=== PATIENT | male | born 1995 | race African-American/Black ===

== ENCOUNTER 2017-07-21 09:43 | Emergency (ER) | payer OTHER ==
[~2017-07-21] VITALS: Ht 188 cm; Wt 158.8 kg
[2017-07-21 12:18] VITALS: BP 153/71
== END 2017-07-21 12:19 | disposition home or self-care (01) ==
LOC: M.ERS 09:43
DX: N50.812 Left testicular pain (principal)

== ENCOUNTER 2019-11-17 11:05 | Emergency (ER) | payer OTHER ==
[~2019-11-17] VITALS: Ht 188 cm; Wt 149.7 kg
[2019-11-17] MEDS ORDERED: CARVEDILOL12.5 MG PO (11:24)
[2019-11-17] MEDS ORDERED: POTASSIUM20 PO (11:25)
[2019-11-17] MEDS ORDERED: LANOXIN62.5 MCG PO (11:25)
[2019-11-17] MEDS ORDERED: FUROSEMIDE 20 M20 MG PO (11:25)
[2019-11-17 12:10] LABS: ABSOLUTE BASOPHILS 0.1 thou/uL (0.0-0.2); ABSOLUTE EOSINOPHILS 0.1 thou/uL (0.0-0.7); ABSOLUTE LYMPHOCYTES 2.2 thou/uL (0.8-5.3); ABSOLUTE NEUTROPHILS 6.9 thou/uL (1.6-8.1); BASOPHILS 0.9 %; EOSINOPHILS 0.7 %; HEMATOCRIT 41.6 % (42.0-52.0); HEMOGLOBIN 14.2 gm/dL (14.0-18.0); LYMPHOCYTES 21.2 %; MCH 32.7 pg (26.0-34.0); MCV 96.1 fL (80.0-100.0); MONOCYTES 9.3 %; MPV 8.9 fl. (7.2-11.1); NUCLEATED RBCS 0 /100WBC; PLATELET COUNT* 157 thou/uL (150-400); POLYS 67.9 %; RBC 4.33 mil/uL (4.50-6.00); RDW-CV 13.5 % (10.5-14.5); WBC 10.2 thou/uL (4.0-11.0)
[2019-11-17 12:19] LABS: CALCIUM 8.6 mg/dL (8.5-10.1); CREATININE 1.8 mg/dL (0.6-1.3)
[2019-11-17 12:20] LABS: APTT 22.4 Seconds (25.0-31.3); INR 1.3
[2019-11-17 12:32] LABS: ALBUMIN 3.6 g/dL (3.4-5.0); CK-MB MASS 2.4 ng/mL (<0.5-3.6); MAGNESIUM 1.7 mg/dL (1.8-2.4); TOTAL PROTEIN 7.1 g/dL (6.4-8.2)
[2019-11-17 13:08] VITALS: BP 112/61
--- NOTE | 2019-11-17 15:05 | EKG ---
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
== END 2019-11-17 13:09 | disposition home or self-care (01) ==
LOC: M.ERS 11:05
PROVIDERS: Family Medicine
DX: R06.00 Dyspnea, unspecified (principal); R07.89 Other chest pain; I50.9 Heart failure, unspecified; Z79.899 Other long term (current) drug therapy

== ENCOUNTER 2019-11-24 13:26 | Inpatient (IN) | payer OTHER ==
[~2019-11-24] VITALS: Ht 188 cm; Wt 163.7 kg
[~2019-11-24 13:26] MED LIST: CARVEDILOL12.5 MG PO; FUROSEMIDE 20 M20 MG PO; LANOXIN62.5 MCG PO; POTASSIUM20 PO
[2019-11-24 13:31] VITALS: BP 113/77
[2019-11-24 13:59] LABS: ABSOLUTE BASOPHILS 0.1 thou/uL (0.0-0.2); ABSOLUTE EOSINOPHILS 0.1 thou/uL (0.0-0.7); ABSOLUTE LYMPHOCYTES 2.1 thou/uL (0.8-5.3); ABSOLUTE MONOCYTES 1.1 thou/uL (0.0-1.2); ABSOLUTE NEUTROPHILS 7.7 thou/uL (1.6-8.1); HEMOGLOBIN 14.2 gm/dL (14.0-18.0); LYMPHOCYTES 18.8 %; MCH 32.5 pg (26.0-34.0); MCHC 33.8 g/dL (28.0-37.0); MCV 96.1 fL (80.0-100.0); MONOCYTES 9.5 %; MPV 9.5 fl. (7.2-11.1); NUCLEATED RBCS 0 /100WBC; PLATELET COUNT* 171 thou/uL (150-400); POLYS 69.7 %; RBC 4.38 mil/uL (4.50-6.00)
[2019-11-24 14:16] LABS: CALCIUM 8.3 mg/dL (8.5-10.1); CREATININE 1.9 mg/dL (0.6-1.3); POTASSIUM 4.1 mmol/L (3.5-5.1)
[2019-11-24 14:22] LABS: ALBUMIN 3.3 g/dL (3.4-5.0); TOTAL BILIRUBIN 1.5 mg/dL (<0.1-1.0); TOTAL PROTEIN 6.5 g/dL (6.4-8.2)
--- NOTE | 2019-11-24 15:02 | EKG ---
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1995 Requested By: So Thompson Order Number: [id number] MD: Christopher Ambrosio Measurements Intervals [place] Rate: 81 P: 79 [place]: 160 QRS: 57 QRSD: 95 T: 18 QT: 403 QTc: 468 Interpretive Statements Sinus rhythm Left atrial enlargement Minor intraventricular conduction delay Compared to ECG 11/17/2019 11:22:43 No significant changes Electronically Signed On 11-24-2019 15:02:19 CDT by Christopher Ambrosio [email or web address] <ELECTRONICALLY SIGNED> By: Christopher Ambrosio MD, [facility] 11/24/19 1502 1330 1330 Christopher Ambrosio MD, [facility] /EPI
[2019-11-24 17:09] LABS: URINE BILIRUBIN NEGATIVE (Negative); URINE BLOOD NEGATIVE (Negative); URINE CLARITY CLEAR; URINE COLOR YELLOW; URINE GLUCOSE-RANDOM NEGATIVE (Negative); URINE KETONES NEGATIVE (Negative); URINE LEUKOCYTES-REFLEX NEGATIVE (Negative); URINE NITRITE-REFLEX NEGATIVE (Negative); URINE PROTEIN 2+ (Negative); URINE SPECIFIC GRAVITY >= 1.030 (1.005-1.030); URINE UROBILINOGEN 0.2 E.U./dl (0.2-1.0)
[2019-11-24 17:10] LABS: BE 0.9 mmol/L (-2 to +3); PCO2 37.5 mmHg (35.0-45.0); PO2 82.4 mmHg (75.0-100.0); pH 7.439 (7.340-7.450)
[2019-11-24 17:16] LABS: AMP/METHAMP Negative (Negative); BARBITURATES Negative (Negative); BENZODIAZEPINES Negative (Negative); COCAINE Negative (Negative); METHADONE Negative (Negative); OPIATES POSITIVE (Negative); PCP Negative (Negative); THC POSITIVE (Negative)
[2019-11-24 17:21] LABS: BACTERIA-REFLEX None Seen /HPF (None Seen); CRYSTALS None Seen /LPF (None Seen); FINE GRANULAR CASTS 0-3 Few /LPF (None Seen); HYALINE CASTS 0-3 Few /LPF (None Seen); MUCUS 4-6 Moderate strn/LPF (None Seen); SQUAMOUS 0-3 Few /LPF (0-3); URINE RBC None Seen /HPF (0-2); URINE WBC-REFLEX 0-5 Rare /HPF (0-5)
[2019-11-24 17:25] VITALS: BP 115/70
[2019-11-24 17:47] VITALS: BP 116/73
[2019-11-24 19:40] VITALS: BP 120/74
[2019-11-25] VITALS: BP 121/65
[2019-11-25 04:00] VITALS: BP 113/49
[2019-11-25 08:00] VITALS: BP 103/45
[2019-11-25 11:36] LABS: HEMATOCRIT 42.8 % (42.0-52.0); HEMOGLOBIN 14.4 gm/dL (14.0-18.0); MCH 32.3 pg (26.0-34.0); MCHC 33.7 g/dL (28.0-37.0); MCV 95.9 fL (80.0-100.0); MPV 9.5 fl. (7.2-11.1); RBC 4.46 mil/uL (4.50-6.00); RDW-CV 13.7 % (10.5-14.5); WBC 16.7 thou/uL (4.0-11.0)
[2019-11-25 11:58] LABS: CALCIUM 8.9 mg/dL (8.5-10.1); CREATININE 1.5 mg/dL (0.6-1.3); POTASSIUM 4.1 mmol/L (3.5-5.1)
[2019-11-25 12:11] VITALS: BP 141/77
[2019-11-25 17:18] VITALS: BP 126/74
[2019-11-25 19:40] VITALS: BP 138/58
[2019-11-26] VITALS: BP 129/66
[2019-11-26 04:00] VITALS: BP 118/65
[2019-11-26 05:36] LABS: GLYCOHEMOGLOBIN (HGB A1C) 5.4 % (4.8-5.6)
[2019-11-26 07:24] LABS: HEMATOCRIT 44.7 % (42.0-52.0); HEMOGLOBIN 14.8 gm/dL (14.0-18.0); MCH 32.4 pg (26.0-34.0); MCHC 33.1 g/dL (28.0-37.0); MCV 97.8 fL (80.0-100.0); MPV 9.7 fl. (7.2-11.1); RBC 4.57 mil/uL (4.50-6.00); RDW-CV 13.7 % (10.5-14.5); WBC 17.4 thou/uL (4.0-11.0)
[2019-11-26 07:34] LABS: CALCIUM 8.3 mg/dL (8.5-10.1); CREATININE 1.5 mg/dL (0.6-1.3); MAGNESIUM 2.3 mg/dL (1.8-2.4); POTASSIUM 4.5 mmol/L (3.5-5.1)
[2019-11-26 08:00] VITALS: BP 126/68
[2019-11-26 12:35] VITALS: BP 122/79
[2019-11-26 16:49] VITALS: BP 122/80
[2019-11-26 19:40] VITALS: BP 147/78
[2019-11-27] VITALS: BP 121/61
[2019-11-27 04:00] VITALS: BP 126/79
[2019-11-27 04:55] LABS: HEMATOCRIT 43.3 % (42.0-52.0); HEMOGLOBIN 14.6 gm/dL (14.0-18.0); MCH 32.9 pg (26.0-34.0); MCHC 33.8 g/dL (28.0-37.0); MCV 97.3 fL (80.0-100.0); MPV 10.1 fl. (7.2-11.1); RBC 4.45 mil/uL (4.50-6.00); RDW-CV 13.7 % (10.5-14.5)
[2019-11-27 05:34] LABS: ALBUMIN 3.2 g/dL (3.4-5.0); CALCIUM 8.5 mg/dL (8.5-10.1); CREATININE 1.5 mg/dL (0.6-1.3); POTASSIUM 4.3 mmol/L (3.5-5.1); TOTAL BILIRUBIN 0.9 mg/dL (<0.1-1.0); TOTAL PROTEIN 6.4 g/dL (6.4-8.2)
[2019-11-27 08:15] VITALS: BP 135/69
--- NOTE | 2019-11-27 09:24 | CON ---
[address] [address] CONSULTATION Name: NUSRAT SCANLON Room: [address] IN ..#: [id number] Admission: 11/24/19 Attend Phys: Sherley Hurtado MD Discharge: Date of : [birth year] Report #: [id number] THIS REPORT FOR: //name// cc: PATTI Enciso family physician/PCP PATTI - No family physician/PCP ~ THIS REPORT FOR: //name// CC: PATTI physician/PCP Sherley Hurtado INDICATION: Heart failure. HISTORY OF PRESENT ILLNESS: The patient is a very pleasant 24-year-old gentleman with history of nonischemic cardiomyopathy with significantly reduced EF of 15-20% by past studies. This had been attributed to substance use in the past. The patient presents after relocating back to the area with increased shortness of breath, orthopnea and dyspnea. He had run out of some of his medications. He was given Lasix in the Emergency Room yesterday with improvement in his symptoms. We do not have any recent echocardiogram. CURRENT HOME MEDICATIONS: Documented as carvedilol 12.5 mg b.i.d., digoxin 62.5 mcg daily, furosemide 120 mg tablet daily, potassium chloride 20 mEq daily. ALLERGIES: None. PAST MEDICAL HISTORY: Heart failure. FAMILY HISTORY: Noncontributory. SOCIAL HISTORY: The patient is a current every day smoker. Drinks alcohol on occasion. REVIEW OF SYSTEMS: A 14-point review of systems is positive for weakness and generalized cough, nonproductive; history of pneumonia; history of asthma; chest pressure; dyspnea on exertion; orthopnea; paroxysmal nocturnal dyspnea. He has had some vomiting without hematemesis. He reports seasonal allergies. He has anxiety. Otherwise, 14-point review of systems was unremarkable. PHYSICAL EXAMINATION: VITAL SIGNS: Blood pressure is 141/77, pulse is 86 and regular. GENERAL: This is an obese, pleasant gentleman in no distress. HEENT: Head is normocephalic, atraumatic. Extraocular muscles intact. NECK: Thick without obvious jugular venous distention. CHEST: Reveals clear lung vasques. I do not appreciate wheezes or rales at this time. CARDIAC: Reveals regular rhythm with distant S1, S2. I do not appreciate gall[place] [address] CONSULTATION Name: NUSRAT SCANLON Room: [address] IN [facility].#: [id number] Admission: 11/24/19 Attend Phys: Sherley Hurtado MD Discharge: Date of : [birth year] Report #: [id number] ABDOMEN: Reveals normal bowel sounds. EXTREMITIES: Shows no significant edema. SKIN: Dry. LABORATORY DATA: Reviewed. BUN 19, creatinine 1.5, EGFR 70. NT-proBNP 2869. Chest x-ray shows no acute process. IMPRESSION AND RECOMMENDATIONS: Acute on chronic systolic heart failure. We will give another bolus of IV Lasix and resume heart failure medications and titrate as tolerated. Repeat echocardiogram on Wednesday. <ELECTRONICALLY SIGNED> By: Jt Keller MD, FACC 11/27/19923 1310 1350Jt Keller MD, FACC /nt
[2019-11-27] MEDS ORDERED: LASIX 40 MG TAB40 MG PO (10:06)
[2019-11-27] MEDS ORDERED: COZAAR 50 MG TA50 M1 PO (10:06)
[2019-11-27 12:00] VITALS: BP 111/60
[2019-11-27 14:12] VITALS: BP 111/60
--- NOTE | 2019-11-27 14:42 | 2DMMODE ---
[place] [address] 2 D/M-MODE ECHOCARDIOGRAM Name: NUSRAT SCANLON Room: [address] IN Rj#: [id number] Admission: 11/24/19 Attend Phys: Sherley Hurtado, Discharge: Date of : [birth year] Date of Service: 11/27/19 1441 Report #: [id number] THIS REPORT FOR: cc: FAM - No family physician/PCP PATTI - No family physician/PCP Christopher Ambrosio MD [facility] ~ APPROVED REPORT Study performed: 11/27/2019 11:11:31 EXAM: Comprehensive 2D, Doppler, and color-flow Echocardiogram Patient Location: In-Patient Room #: 202 Status: routine BSA: 2.81 HR: 61 bpm BP: 126/79 mmHg Rhythm: NSR Other Information Study Quality: Good Indications Congestive Heart Failure Dyspnea 2D Dimensions IVSd: 10.64 (7-11mm) LVOT Diam: 22.45 (18-24mm) LVDd: 83.45 mm PWd: 10.53 (7-11mm) Ascending Ao: 25.46 (22-36mm) LVDs: 76.57 (25-40mm) Aortic Root: 32.19 mm Volumes Left Atrial Volume (Systole) LA ESV Index: 71.10 mL/m2 Aortic Valve AoV Peak Dustin.: 0.81 m/s AO Peak Gr.: 2.65 mmHg LVOT Max P.38 mmHg AO Mean Gr.: 1.59 mmHg LVOT Mean P.69 mmHg LVOT Max V: 0.59 m/s AO V2 VTI: 11.57 cm LVOT Mean V: 0.38 m/s JAMES (VTI): 2.84 cm2 LVOT V1 VTI: 8.31 [place] [address] 2 D/M-MODE ECHOCARDIOGRAM Name: NUSRAT SCANLON Room: [address] IN [facility].#: [id number] Admission: 11/24/19 Attend Phys: Sherley Hurtado, Discharge: Date of : [birth year] Date of Service: 11/27/19 1441 Report #: [id number] Mitral Valve MV Decel. Time: 105.57 ms MV PHT: 30.62 ms MVA (PHT): 7.19 cm2 TDI Medial E' Dustin.: 0.15 m/s Lateral E' Dustin.: 0.13 m/s Pulmonary Valve PV Peak Dustin.: 0.80 m/s PV Peak Gr.: 2.56 mmHg Tricuspid Valve RAP Estimate: 5.00 mmHg TR Peak Gr.: 30.86 mmHg RVSP: 35.00 mmHg PA Pressure: 35.00 mmHg Left Ventricle Left ventricle is moderately dilated. There is severe global hypokinesis of left ventricular wall motion. There is normal left ventricular wall thickness. Left ventricular systolic function is severely decreased. LVEF is 20-25%. Grade IV - fixed restrictive diastolic dysfunction. Right Ventricle Right ventricle is mildly dilated. The right ventricular systolic function is normal. Atria Left atrium is moderately dilated. Right atrium is mildly dilated. Aortic Valve The aortic valve is normal in structure. No aortic regurgitation is present. There is no aortic valvular stenosis. Mitral Valve The mitral valve is normal in structure. Moderate mitral regurgitation. No evidence of mitral valve stenosis. Tricuspid Valve The tricuspid valve is normal in structure. Mild tricuspid regurgitation. Mild pulmonary hypertension[place] [address] 2 D/M-MODE ECHOCARDIOGRAM Name: NUSRAT SCANLON Room: [address] IN [facility]#: [id number] Admission: 11/24/19 Attend Phys: Sherley Hurtado, Discharge: Date of : [birth year] Date of Service: 11/27/19 1441 Report #: [id number] The pulmonary valve is normal in structure. Mild pulmonic regurgitation. Great Vessels The aortic root is normal in size. IVC is normal in size and collapses >50% with inspiration. Pericardium There is no pericardial effusion. <Conclusion> Left ventricle is moderately dilated. There is normal left ventricular wall thickness. Left ventricular systolic function is severely decreased. LVEF is 20-25%. Grade IV - fixed restrictive diastolic dysfunction. Right ventricle is mildly dilated. Left atrium is moderately dilated. Right atrium is mildly dilated. The aortic valve is normal in structure. The mitral valve is normal in structure. Moderate mitral regurgitation. The tricuspid valve is normal in structure. Mild tricuspid regurgitation. Mild pulmonary hypertension. IVC is normal in size and collapses >50% with inspiration. There is no pericardial effusion. There is severe global hypokinesis of left ventricular wall motion. <ELECTRONICALLY SIGNED> By: Christopher Ambrosio MD, FACC 11/27/19 1441 1441 144 Christopher Ambrosio MD, FACC /INF
--- NOTE | 2019-11-28 15:26 | EKG ---
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
== END 2019-11-27 15:15 | disposition home or self-care (01) | DRG 291 ==
LOC: M.ERS 13:26 → M.TBA-ER 14:57 → M.2W 17:40
PROVIDERS: Physician Assistant; ADMIT Internal Medicine; ATTEND Internal Medicine
DX: I50.23 Acute on chronic systolic (congestive) heart failure (principal); J96.01 Acute respiratory failure with hypoxia; N17.0 Acute kidney failure with tubular necrosis; Z68.42 Body mass index [BMI] 45.0-49.9, adult; F15.11 Other stimulant abuse, in remission; R73.9 Hyperglycemia, unspecified; E66.01 Morbid (severe) obesity due to excess calories; N18.3 Chronic kidney disease, stage 3 (moderate); I08.1 Rheumatic disorders of both mitral and tricuspid valves; F17.210 Nicotine dependence, cigarettes, uncomplicated; Z20.828 Contact with and (suspected) exposure to other viral communicable diseases; Z79.899 Other long term (current) drug therapy; Z91.14 Patient's other noncompliance with medication regimen